=== PATIENT | female | born 1990 | race Caucasian/White ===

== ENCOUNTER 2017-11-08 12:31 | Emergency (ER) | payer OTHER ==
[2017-11-08 12:38] VITALS: BP 128/78
--- NOTE | 2017-11-08 13:21 | XRAY Report ---
EXAM: CHEST RADIOGRAPHY EXAM DATE: 11/08/2017 12:48 PM. CLINICAL HISTORY: Cough. COMPARISON: None. TECHNIQUE: 2 views. FINDINGS: Lungs/Pleura: No focal opacities evident. No pleural effusion. No pneumothorax. Normal volumes. Mediastinum: Heart and mediastinal contours are unremarkable. Other: None. IMPRESSION: Normal 2-view chest radiography. [facility] Referring Provider Line: [phone] SITE ID: [id number]
--- NOTE | 2017-11-08 13:21 | XRAY Preliminary Report ---
Exam: XR CHEST 2 VIEW X-RAY IMPRESSION: Normal 2-view chest radiography. [facility] SITE ID: [id number]
--- NOTE | 2017-11-08 13:46 | ED Physician Documentation ---
PD HPI URI - Stated complaint Stated Complaint: CONGESTION/CHEST CONGESTION - Chief complaint Chief Complaint: Resp - History obtained from History obtained from: Patient - History of Present Illness Timing - onset: How many days ago (2) Timing duration: Days (2) Timing details: Gradual onset Pain level max: 5 Pain level now: 4 Associated symptoms: Fever, Chills, Nasal congestion, Rhinorrhea, Dry cough, Dyspnea (states chest feels tight) Contributing factors: Sick contact (daughter goes to school) Improves by: Rest, Medication (tylenol) Worsened by: Activity, Breathing Recently seen: Not recently seen Review of Systems Constitutional: reports: Fever Nose: reports: Rhinorrhea / runny nose, Congestion Respiratory: reports: Cough GI: denies: Abdominal Pain, Nausea, Vomiting, Diarrhea : denies: Dysuria, Frequency, Hesitancy, Now EGA Skin: denies: Rash PD PAST MEDICAL HISTORY - Past Medical History Past Medical History: No - Past Surgical History Past Surgical History: No - Present Medications Home Medications: Ambulatory Orders Medication Instructions Recorded Confirmed Albuterol Sulf [Ventolin Hfa 1 - 2 puffs INH Q4HR PRN #1 inhaler 11/08/17 Inhaler] Benzonatate [Tessalon Perle] 100 - 200 mg PO TID PRN #30 capsule 11/08/17 Cetirizine HCl/Pseudoephedrine 1 each PO BID PRN #30 tab.er.12h 11/08/17 [Zyrtec-D Tablet] - Allergies Allergies/Adverse Reactions: Allergies Allergy/AdvReac Type Severity Reaction Status Date / Time human papillomavirus Allergy Unknown Verified 11/08/17 12:37 vaccine, quadr [From Gardasil (PF)] - Living Situation Living Situation: reports: With family Living Arrangement: reports: At home - Social History Does the pt have substance abuse?: No - Family History Family history: reports: Non contributory PD ED PE NORMAL - Vitals Vital signs reviewed: Yes - General General: Alert and oriented X 3, No acute distress - HEENT HEENT: Ears normal, Moist mucous membranes, Pharynx benign - Neck Neck: Supple, no meningeal sign - Cardiac Cardiac: RRR, Strong equal pulses - Respiratory Respiratory: No respiratory distress, Clear bilaterally (Clear but diminished bilaterally) - Abdomen Abdomen: Soft, Non tender, Non distended - Derm Derm: Warm and dry, No rash - Extremities Extremities: No edema - Neuro Neuro: Alert and oriented X 3 - Psych Psych: Normal mood, Normal affect Results - Vitals Vitals: Vital Signs - 24 hr 11/08/17 11/08/17 12:35 14:24 Temperature 37.1 C Heart Rate 91 90 Respiratory 20 16 Rate Blood Pressure 128/78 O2 Saturation 100 Oxygen O2 Source Room air - Rads (name of study) cxr Radiology: Prelim report reviewed, EMP read contemporaneously, See rad report ( normal) PD MEDICAL DECISION MAKING - ED course Complexity details: reviewed results, re-evaluated patient, considered differential, d/w patient ED course: Patient is a 27-year-old female who presents to the emergency department with what appears to be a viral syndrome. She is well-appearing, nontoxic. No hypoxia or respiratory distress. Normal chest x-ray. We will continue supportive care and follow-up with her doctor. Did feel better after nebulizer treatment and will prescribe an inhaler for home. Patient counseled regarding signs and symptoms for which I believe and urgent re-evaluation would be necessary. Patient with good understanding of and agreement to plan and is comfortable going home at this time This document was made in part using voice recognition software. While efforts are made to proofread this document, sound alike and grammatical errors may occur. Departure - Departure Disposition: 01 Home, Self Care Clinical Impression: Upper respiratory tract infection Qualifiers: URI type: unspecified viral URI Qualified Code(s): J06.9 - Acute upper respiratory infection, unspecified Condition: Good Instructions: ED Viral Syndrome Follow-Up: your,doctor in 1 week if not better [Other] Prescriptions: Albuterol Sulf [Ventolin Hfa Inhaler] 1 - 2 puffs INH Q4HR PRN #1 inhaler PRN Reason: Shortness Of Air/Wheezing Benzonatate [Tessalon Perle] 100 - 200 mg PO TID PRN #30 capsule PRN Reason: Cough Cetirizine HCl/Pseudoephedrine [Zyrtec-D Tablet] 1 each PO BID PRN #30 tab.er.12h PRN Reason: Nasal Congestion Comments: Drink plenty of fluids and rest. Return if you worsen. Your x-ray is normal today. Discharge Date/Time: 11/08/17 14:54
[2017-11-08] MEDS ORDERED: ALBUTEROL NEB 2.5 MG/3 ML INH STA (13:58)
== END 2017-11-08 14:54 | disposition home or self-care (01) ==
LOC: ED 12:31
DX: J06.9 Acute upper respiratory infection, unspecified (principal)
CPT/HCPCS: 71046; 94640; 94664; 99283; J7613